=== PATIENT | male | born 1955 | race Caucasian/White ===

== ENCOUNTER 2018-10-21 23:20 | Emergency (ER) | payer BC ==
[~2018-10-21] VITALS: Ht 177.8 cm; Wt 102.1 kg
[2018-10-21 23:35] VITALS: BP 168/103
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
[2018-10-21] MEDS ORDERED: NEOMY/BACITR/POLYMYXIN OINT PACKET. TP ONE (23:56)
[2018-10-22] MEDS ORDERED: TETANUS AND DIPHTHERIA TOX/PF 0.5 ML DISP.SYRIN. VAX IM ONE
[2018-10-22] MEDS ORDERED: NEOMY/BACITR/POLYMYXIN OINT PACKET. TP ONE (00:30)
== END 2018-10-22 00:11 | disposition home or self-care (01) ==
LOC: ER 23:20
DX: T23.222A Burn of second degree of single left finger (nail) except thumb, initial encounter (principal); W86.1XXA Exposure to industrial wiring, appliances and electrical machinery, initial encounter; Y93.89 Activity, other specified; Y92.89 Other specified places as the place of occurrence of the external cause; Y99.8 Other external cause status
CPT/HCPCS: 90471; 90714; 99284

== ENCOUNTER 2019-02-28 19:22 | Inpatient (IN) | payer BC, OTHER ==
[~2019-02-28] VITALS: Ht 177.8 cm; Wt 107.2 kg
[2019-02-28] MEDS ORDERED: IV NORMAL SALINE 1000ML BAG 1,000 ML IV SCH (19:40)
[2019-02-28] MEDS ORDERED: ONDANSETRON PF 4 MG/2 ML VIAL. IV ONE ×2 (19:45→22:30)
[2019-02-28] MEDS ORDERED: MORPHINE SULFATE 4 MG/ML VIAL. IV ONE (19:45)
[2019-02-28] MEDS ORDERED: IOHEXOL 300 MG/ML 100ML VIAL. IV ONE (19:45)
[2019-02-28 19:48] LABS: BASO # 0.1 x10^3/uL (0.0-0.2); BASO % 1 % (0-3); EOS # 0.4 x10^3/uL (0.0-0.7); EOS % 3 % (0-3); HEMATOCRIT 44.3 % (39.0-53.0); HEMOGLOBIN 14.8 g/dL (13.0-17.5); LYMPH # 3.4 x10^3/uL (1.0-4.8); LYMPH % 30 % (24-48); MEAN CORPUSCULAR HEMOGLOBIN 29 pg (25-35); MEAN CORPUSCULAR HGB CONC 34 g/dL (31-37); MEAN CORPUSCULAR VOLUME 87 fL (79-100); MONO # 0.8 x10^3/uL (0.0-1.1); MONO % 7 % (0-9); NEUT # 6.7 x10^3/uL (1.8-7.7); NEUT % 59 % (31-73); PLATELET COUNT 260 x10^3/uL (140-400); RED BLOOD COUNT 5.12 x10^6/uL (4.30-5.70); RED CELL DISTRIBUTION WIDTH 14.5 % (11.5-14.5); WHITE BLOOD COUNT 11.3 x10^3/uL (4.0-11.0)
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
[2019-02-28 19:59] LABS: PROTHROMBIN TIME PATIENT 12.2 SEC (11.7-14.0)
[2019-02-28] MEDS ORDERED: CONTRAST GIVEN. MC PRN (20:00)
[2019-02-28 20:02] LABS: CALCIUM 8.8 mg/dL (8.5-10.1); CREATININE 1.3 mg/dL (0.7-1.3); GFR 55.6; POTASSIUM 3.7 mmol/L (3.5-5.1)
[2019-02-28 20:07] LABS: ALBUMIN 3.9 g/dL (3.4-5.0); TOTAL BILIRUBIN 0.5 mg/dL (0.2-1.0); TOTAL PROTEIN 7.7 g/dL (6.4-8.2)
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
[2019-02-28] MEDS ORDERED: fentaNYL PF VIAL 100 MCG/2 ML VIAL IV ONE (22:30)
[2019-02-28] MEDS ORDERED: IV NORMAL SALINE 1000ML BAG 1,000 ML IV ONE (23:00)
[2019-02-28 23:04] LABS: BILIRUBIN,URINE NEGATIVE (NEG); CLARITY,URINE CLEAR; COLOR,URINE YELLOW; NITRITE,URINE NEGATIVE (NEG); PH,URINE 5.5; PROTEIN,URINE NEGATIVE (NEG-TRACE); UROBILINOGEN,URINE 0.2 mg/dL (0.2 mg/dL)
[2019-02-28 23:05] LABS: BACTERIA,URINE 0 /HPF (0-FEW); RBC,URINE 0 /HPF (0-2)
[2019-02-28 23:07] LABS: BARBITURATES NEG (NEG); BENZODIAZEPINES NEG (NEG); CANNABINOIDS NEG (NEG); COCAINE NEG (NEG); METHADONE NEG (NEG); OPIATES POS (NEG); PHENCYCLIDINE NEG (NEG)
[2019-02-28 23:08] LABS: AMPHETAMINE/METHAMPHETAMINE NEG (NEG)
[2019-02-28] MEDS ORDERED: ONDANSETRON PF 4 MG/2 ML VIAL. IV PRN (23:30)
[2019-02-28] MEDS ORDERED: fentaNYL PF VIAL 100 MCG/2 ML VIAL IV PRN (23:30)
[2019-03-01] VITALS (7 sets, daily range): BP systolic 105–139; BP diastolic 45–68
[2019-03-01] MEDS ORDERED: IV NORMAL SALINE 1000ML BAG 1,000 ML IV SCH
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
[2019-03-01] MEDS ORDERED: METOCLOPRAMIDE HCL 10 MG/2 ML VIAL. IVP PRN (01:30)
[2019-03-01] MEDS: CALCIUM CARBONATE 500 MG TAB.CHEW PO PRN ×3 (01:36→20:54)
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
--- NOTE | 2019-03-01 05:56 | NUR ---
Just notified Dr. Pederson's and [facility]'s answering service about routine consults
--- NOTE | 2019-03-01 07:06 | EKG ---
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
--- NOTE | 2019-03-01 07:15 | EKG ---
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
--- NOTE | 2019-03-01 07:16 | EKG ---
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
[2019-03-01] MEDS ORDERED: LISI-334 PO (10:51)
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
[2019-03-01] MEDS ORDERED: MAGNESIUM SULFATE 2GM 50 ML IV ONE (14:00)
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
[2019-03-01] MEDS: HYDROcodone/APAP 7.5/325MG 1 TAB TABLET PO PRN ×2 (16:34→20:47)
[2019-03-01 17:59] LABS: CHOLESTEROL/HDL RATIO 3.5
[2019-03-01] MEDS ORDERED: LIDOCAINE (700MG/PATCH) PATCH. TD SCH (21:00)
[2019-03-01] MEDS ORDERED: PATCH REMOVAL. MC SCH (21:00)
[2019-03-01] MEDS: LIDOCAINE (700MG/PATCH) PATCH. TD SCH (21:35)
[2019-03-01] MEDS: PANTOPRAZOLE 40 MG TABLET.DR. PO SCH (21:35)
[2019-03-01] MEDS: DOCUSATE SODIUM 100 MG CAPSULE. PO SCH (21:36)
[2019-03-02 03:23] VITALS: BP 101/63
[2019-03-02 07:00] VITALS: BP 115/61
--- NOTE | 2019-03-02 08:17 | PDOC ---
Provider Note Provider Note [id number] KARO SANTIAGO MD Mar 02, 2019 08:17
[2019-03-02] MEDS: PANTOPRAZOLE 40 MG TABLET.DR. PO SCH (08:35)
[2019-03-02] MEDS: DOCUSATE SODIUM 100 MG CAPSULE. PO SCH (08:35)
[2019-03-02] MEDS: HYDROcodone/APAP 7.5/325MG 1 TAB TABLET PO PRN (08:41)
--- NOTE | 2019-03-02 08:45 | CARD ---
MR#: [id number] Date of Study: 03/01/2019 Ordering Physician: RETA SANDOVAL, Referring Physician: RETA SANDOVAL, Tech: Carito Arenas APPROVED REPORT EXAM: Two-dimensional and M-mode echocardiogram with Doppler and color Doppler. Other Information Quality : AverageHR: 82bpm INDICATION Chest Pain 2D DIMENSIONS RVDd3.4 (2.9-3.5cm)Left Atrium(2D)5.0 (1.6-4.0cm) IVSd1.5 (0.7-1.1cm)Aortic Root(2D)2.9 (2.0-3.7cm) LVDd5.0 (3.9-5.9cm)LVOT Diameter2.1 (1.8-2.4cm) PWd0.9 (0.7-1.1cm)LVDs3.3 (2.5-4.0cm) FS (%) 33.6 %SV74.7 ml LVEF(%)62.1 (>50%) Aortic Valve AoV Peak Sree.208.1cm/sAoV VTI39.9cm AO Peak GR.17.3mmHgLVOT VTI 16.85cm AO Mean GR.11mmHgAI P 1/2 Oybo010yi Mitral Valve MV E Qjxfuywr38.3cm/sMV DECEL RXDG250md MV A Kfooozaw27.0cm/sE/A Ratio1.0 TDI Lateral E' P. V11.01cm/sMedial E' P. V8.17cm/s E/Lateral E'7.7E/Medial E'10.4 Tricuspid Valve TR P. Scqqgwgx079et/sRAP RUAFMEZD0toHj TR Peak Gr.21byDvEELS91pvTl Pulmonary Vein S1 Gnsztafe90.0cm/sS2 Yjhjkmds58.45cm/s D2 Lotjwadm91.5cm/sPVa luqagzqs462ysuo LEFT VENTRICLE The left ventricle is normal size. There is mild to moderate concentric left ventricular hypertrophy. The left ventricular systolic function is normal. The Ejection Fraction is 55-60%. There is normal L V segmental wall motion. RIGHT VENTRICLE The right ventricle is normal size. There is normal right ventricular wall thickness. The right ventr icular systolic function is normal. ATRIA The left atrium is borderline dilated. The right atrium is not well visualized. The interatrial septu m is intact with no evidence for an atrial septal defect or patent foramen ovale as noted on 2-D or D oppler imaging. AORTIC VALVE The aortic valve is calcified but opens well. Doppler and Color Flow revealed trace aortic regurgitat ion. There is no significant aortic valvular stenosis. MITRAL VALVE The mitral valve is normal in structure and function. There is no evidence of mitral valve prolapse. There is no mitral valve stenosis. Doppler and Color-flow revealed trace mitral regurgitation. TRICUSPID VALVE The tricuspid valve is not well visualized. Doppler and Color Flow revealed trace tricuspid regurgita tion with an estimated PAP of 25 mmHg. There is no tricuspid valve stenosis. PULMONIC VALVE The pulmonary valve is normal in structure and function. Doppler and Color Flow revealed no pulmonic valvular regurgitation. GREAT VESSELS The aortic root is normal in size. The IVC was not visualized. PERICARDIAL EFFUSION There is no evidence of significant pericardial effusion. Critical Notification Critical Value: No <Conclusion> The left ventricular systolic function is normal. The Ejection Fraction is 55-60%. There is normal LV segmental wall motion. Trace mitral regurgitation. Trace tricuspid regurgitation with an estimated PAP of 25 mmHg. There is no evidence of significant pericardial effusion. Signed by : Huan Waters, Electronically Approved : 03/02/2019 08:44:33
[2019-03-02 11:00] VITALS: BP 105/53
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
[2019-03-02] MEDS: LIDOCAINE (700MG/PATCH) PATCH. TD SCH (11:54)
--- NOTE | 2019-03-02 12:38 | NUR ---
Discharge Note: [facility] Discharge instructions and discharge home medications reviewed with Patient and a copy given. All questions have been answered and understanding verbalized. The following instructions and handouts were given: follow up instructions, prescription for [place] 7.5/325 Discontinued lines and drains: 18 gauge left ac, tip intact. patient tolerated well. Patient discharged to home with self care via .
== END 2019-03-02 12:22 | disposition home or self-care (01) | DRG 185 ==
LOC: ER 19:22 → 6 SOUTH 23:27 → OBSVTOIN 03-01 00:15
PROVIDERS: ADMIT Family Medicine; ATTEND Family Medicine
DX: S22.42XA Multiple fractures of ribs, left side, initial encounter for closed fracture (principal); I10 Essential (primary) hypertension; K57.90 Diverticulosis of intestine, part unspecified, without perforation or abscess without bleeding; K21.9 Gastro-esophageal reflux disease without esophagitis; I49.3 Ventricular premature depolarization; M54.5 Low back pain; S80.211A Abrasion, right knee, initial encounter; I49.9 Cardiac arrhythmia, unspecified; S80.212A Abrasion, left knee, initial encounter; Y92.410 Unspecified street and highway as the place of occurrence of the external cause; V29.9XXA Motorcycle rider (driver) (passenger) injured in unspecified traffic accident, initial encounter; Y93.55 Activity, bike riding; Y99.8 Other external cause status; Z82.49 Family history of ischemic heart disease and other diseases of the circulatory system
CPT/HCPCS: 36415; 70450; 71045; 71260; 72125; 74177; 80053; 80061; 80307; 81001; 82553; 83735; 84443; 84484; 85025; 85610; 85730; 86850; 86900; 86901; 93005; 93306; G0238; G0379; G0480; J2270; J2405; J2765; J3010; J3475; J7030; Q9967; G0378